=== PATIENT | female | born 1985 | race African-American/Black ===

== ENCOUNTER 2017-07-01 18:55 | Emergency (ER) | payer MEDICAID, OTHER ==
[~2017-07-01] VITALS: Ht 165.1 cm; Wt 77.1 kg
[~2017-07-01 18:55] MED LIST: ACETAMINOPHEN-1 EAC1 ORAL; CLINDAMYCIN HC300 MG ORAL; CYCLOBENZAPRINE10 MG ORAL; IBUPROFEN200 MG ORAL; NORCO 5-325 TA1 EACH ORAL; PENICILLIN V P500 MG PO
[2017-07-01 19:30] VITALS: BP 145/92
[2017-07-01] MEDS ORDERED: AUGMENTIN 875-1 EAC1 ORAL (20:16)
--- NOTE | 2017-07-01 20:16 | Emergency Room Report ---
History of Present Illness General Chief Complaint: Toothache Source: Patient Present Illness HPI 31-year-old female patient presents ER complaining of tooth pain. Patient reports a history of tooth pain, this previously seen at [facility] for similar symptoms. Patient reports that she was seen at [facility] yesterday, was discharged with pain medication. Patient reports pain and swelling have increased since that time. Patient reports she does not need pain medication, think she needs "antibiotics". Patient reports she has not seen a dentist in " a long while". Patient denies fever, chest pain, shortness breath, vomiting, other acute symptoms. Allergies: Coded Allergies: ACETAMINOPHEN (Verified Allergy, Unknown, Hives, 07/01/17) CODEINE (Verified Allergy, Unknown, Hives, 07/01/17) Patient History Past Medical History: see triage record Last Menstrual Period: 06/18/17 Now: No Reviewed Nursing Documentation: PMH: Agreed; PSxH: Agreed Nursing Documentation-PMH Past Medical History: No Stated History Hx Asthma: No Review of Systems All Other Systems: negative except mentioned in HPI Physical Exam Vital Signs Date Time Temp Pulse Resp B/P (MAP) Pulse Ox O2 Delivery O2 Flow Rate FiO2 07/01/17 19:14 98.2 107 16 145/92 98 Room Air 98.2 Sp02 EP Interpretation: reviewed, normal General Appearance: well appearing, no apparent distress, alert, GCS 15, non- toxic Head: normocephalic, atraumatic, other - swelling of left cheek Eyes: bilateral eye normal inspection, bilateral eye PERRL ENT: hearing grossly normal, normal pharynx, no angioedema, normal voice, TMs + canals normal, uvula midline, moist mucus membranes, other - left bottom teeth : Tenderness to palpation, mild erythema of gum, missing teeth; multiple caries , multiple broken teeth; no tonsillar erythema, no pharyngeal erythema, no tonsillar exudates Neck: full range of motion Respiratory: lungs clear, normal breath sounds, no rhonchi, no respiratory distress, no accessory muscle use, no wheezing, speaking full sentences Cardiovascular #1: regular rate, rhythm, no edema Musculoskeletal: back normal, digits/nails normal, gait/station normal, normal range of motion, non-tender Neurologic: alert, oriented x3, responsive, motor strength/tone normal, sensory intact Psychiatric: mood/affect normal Medical Decision Making PA Attestation Dr. Acuña is my supervising Physician whom patient management has been discussed with. Diagnostic Impression: Primary Impression: Tooth infection ER Course Pt. presents to the ED c/o dental infection. Ddx considered but are not limited to cellulitis, abscess, dental caries, gingivitis. Does not require imaging at this time. Vital signs: are WNL, pt. is afebrile ED INTERVENTIONS: patient declined pain medication in ER. Nontoxic appearing, speaking full sentences, no active draining, mild edema, no trismus or vision changes. On physical exam ears show non-erythematous TMs, light reflexes intact, ear canals without erythema or edema, mild cerumen, bilaterally. low suspicion for otitis media or externa. multiple broken teeth, tenderness to palpation, mild erythema gum and left side of cheek, symptoms likely related to dental infection, will provide antibiotic treatment informed patient's symptoms at presentation likely related to dental infection. F/u with PCP and dentist for further treatment. informed patient that she needs to follow-up with dentist to treat underlying cause of symptoms, patient reports she will reports a dentist tomorrow. DISCHARGE: -Rx provided for Augmentin does not require pain medication at this time. declines need for Rx, states has pain medication from [place]. At this time pt. is stable for d/c to home. Patient is resting comfortably, in no acute distress, nontoxic appearing, talking and smiling without difficulty. Will provide printed patient care instructions and any necessary prescriptions. Care plan and follow up instructions have been discussed with the patient prior to discharge. Patient instructed to follow-up with primary care provider in 2 - 3 days. Followup with dentist. Patient questions asked and answered. Patient reports understanding and agreement to treatment plan. ER precautions given. Patient instructed to return to ER immediately for any new or worsening of symptoms including but not limited to fever, worsening of pain symptoms, worsening of erythema, red streaking. - Please note that this Emergency Department Report was dictated using [employer] deaf technology software, occasionally this can lead to erroneous entry secondary to interpretation by the dictation equipment. Last Vital Signs Date Time Temp Pulse Resp B/P (MAP) Pulse Ox O2 Delivery O2 Flow Rate FiO2 07/01/17 19:30 98.2 107 16 145/92 98 Room Air 98.2 Disposition: HOME, SELF-CARE Condition: Stable Scripts Amoxicillin/Potassium Clav 875-125* (AUGMENTIN 875-125 TABLET*) 1 Each Tablet 1 TAB ORAL TWICE A DAY, #14 TAB Prov: Rick Kessler 07/01/17 Patient Instructions: Dental Caries, [id number], Dental Pain, [id number] Additional Instructions: Follow-up with dentist tomorrow. Patient reports agreement. Followup with primary care provider in 3 -5 days. Take medications as directed. Patient questions asked and answered. ER precautions given, patient instructed to return to ER immediately for any new or worsening of symptoms. Rick Kessler July 01, 2017 20:16
[2017-07-01 20:44] VITALS: BP 140/91
[2017-07-01] MEDS ORDERED: Augmentin 875mg Tab ORAL ONE (20:45)
== END 2017-07-01 20:44 | disposition home or self-care (01) ==
LOC: EMR 19:55
DX: K08.89 Other specified disorders of teeth and supporting structures (principal); Z88.5 Allergy status to narcotic agent; Z88.6 Allergy status to analgesic agent; J45.909 Unspecified asthma, uncomplicated
CPT/HCPCS: 99283